=== PATIENT | male | born 1960 | race Caucasian/White ===

== ENCOUNTER 2017-09-03 18:27 | Emergency (ER) | payer BC ==
[2017-09-03] MEDS ORDERED: Sodium Chloride 0.9% 10 ML Syringe FLUSH PRN (18:37)
--- NOTE | 2017-09-03 18:40 | EDM.PDOC ---
<Dagoberto Pemberton M - Last Filed: 09/03/17 18:45> ED HPI GENERAL MEDICAL PROBLEM - General Chief Complaint: Cardiovascular Problem Stated Complaint: palpitations Time Seen by Provider: 09/03/17 18:29 Source of Information: Reports: Patient History Limitations: Reports: No Limitations - History of Present Illness INITIAL COMMENTS - FREE TEXT/NARRATIVE: Patient presents to emergency room this evening with complaints of chest palpitations that started earlier this morning. She states that he's had this on several different occasions but usually they're short-lived and not prolonged like today's episode has been. Patient does have a history of anxiety and migraine headaches for which she does admit to smoking and occasional marijuana. He does state that he had a migraine this morning and did take some sumatriptan. He denies any actual chest pain or pressure; however he states that he feels like his heart is going to beat out of his chest. He denies any history of atrial fibrillation or other arrhythmia, no history of prior [place] or stroke. He states that he used to be a smoker but quit when he was 51, denies any alcohol use. Onset: Today, Gradual Duration: Intermittent Location: Reports: Chest Severity: Moderate - Related Data Allergies Allergy/AdvReac Type Severity Reaction Status Date / Time No Known Allergies Allergy Verified 09/03/17 19:00 Home Meds: Home Meds Multivitamin with Minerals [Multiple Vitamin] 1 tab PO DAILY 02/27/15 [History] SUMAtriptan Succinate [Sumatriptan Succinate] 1 tab PO Q2HR PRN 02/27/15 [ History] LORazepam [LORazepam] 1 mg PO BID PRN 09/03/17 [History] Past Medical History Other Musculoskeletal History: RIGHT HAND FX. FX RIB Social & Family History - Tobacco Use Smoking Status *Q: Former Smoker Used Tobacco, but Quit: Yes Month Tobacco Last Used: OCTOBER Second Hand Smoke Exposure: Yes - Recreational Drug Use Recreational Drug Use: Yes Drug Use in Last 12 Months: Yes Recreational Drug Type: Reports: Marijuana/Hashish Recreational Drug Use Frequency: Socially ED ROS GENERAL - Review of Systems Review Of Systems: See Below Constitutional: Reports: No Symptoms HEENT: Reports: No Symptoms Respiratory: Reports: No Symptoms Cardiovascular: Reports: Palpitations Endocrine: Reports: No Symptoms GI/Abdominal: Reports: No Symptoms : Reports: No Symptoms Musculoskeletal: Reports: No Symptoms Skin: Reports: No Symptoms Neurological: Reports: Headache Psychiatric: Reports: No Symptoms Hematologic/Lymphatic: Reports: No Symptoms Immunologic: Reports: No Symptoms ED EXAM, GENERAL - Physical Exam Exam: See Below Exam Limited By: No Limitations General Appearance: Alert, WD/WN, Mild Distress Eye Exam: Bilateral Eye: EOMI, Normal Inspection, PERRL Ears: Normal External Exam, Normal Canal, Hearing Grossly Normal, Normal TMs Nose: Normal Inspection, Normal Mucosa, No Blood Throat/Mouth: Normal Inspection, Normal Lips, Normal Teeth, Normal Gums, Normal Oropharynx, Normal Voice, No Airway Compromise Head: Atraumatic, Normocephalic Neck: Normal Inspection, Supple, Non-Tender, Full Range of Motion Respiratory/Chest: No Respiratory Distress, Lungs Clear, Normal Breath Sounds, No Accessory Muscle Use, Chest Non-Tender Cardiovascular: Normal Peripheral Pulses, Regular Rate, Rhythm, No Edema, No Gallop, No JVD, No Murmur, No Rub Peripheral Pulses: 2+: Posterior Tibial (L), Posterior Tibial (R), Dorsalis Pedis (L), Dorsalis Pedis (R) GI/Abdominal: Normal Bowel Sounds, Soft, Non-Tender, No Organomegaly, No Distention, No Abnormal Bruit, No Mass Back Exam: Normal Inspection, Full Range of Motion, NT Extremities: Normal Inspection, Normal Range of Motion, Non-Tender, Normal Capillary Refill, No Pedal Edema Neurological: Alert, Oriented, CN II-XII Intact, Normal Cognition, Normal Gait, Normal Reflexes, No Motor/Sensory Deficits Psychiatric: Normal Affect, Normal Mood Skin Exam: Warm, Dry, Intact, Normal Color, No Rash Lymphatic: No Adenopathy EKG INTERPRETATION EKG Date: 09/03/17 Time: 18:39 Rhythm: Other (sinus bradycardia) [place]: Normal P-Wave: Present QRS: Normal ST-T: Normal QT: Normal Comparison: NA - No Prior EKG EKG Interpretation Comments: 1. sinus bradycardia Course - Vital Signs Last Recorded V/S: Last Vital Signs Temp 35.8 C 09/03/17 18:35 Pulse 78 09/03/17 18:35 Resp 16 09/03/17 18:35 BP 143/69 H 09/03/17 18:35 Pulse Ox 97 09/03/17 18:35 - Orders/Labs/Meds Orders: Active Orders 24 hr Category Date Time Status EKG Documentation Completion [RC] ROUTINE Care 09/03/17 18:37 Chest 2V [CR] Stat Exams 09/03/17 18:37 Taken Sodium Chloride 0.9% [Saline Flush] Med 09/03/17 18:37 Active 10 ml FLUSH ASDIRECTED PRN Saline Lock Insert [OM.PC] Routine Oth 09/03/17 18:37 Ordered Medication Orders Sodium Chloride (Saline Flush) 10 ml FLUSH ASDIRECTED PRN PRN Reason: Keep Vein Open Labs: Laboratory Tests 09/03/17 09/03/17 Range/Units 18:45 18:45 WBC 5.7 (4.0-10.0) x10^3/uL RBC 4.77 (4.5-6.0) x10^6/uL Hgb 14.8 (14.0-18.0) g/dL Hct 40.9 (40.0-52.0) % MCV 85.7 (78.0-93.0) fL MCH 31.0 (26.0-32.0) pg MCHC 36.2 H (32.0-36.0) g/dL RDW Coeff of Marck 12.4 (10.0-15.0) % Plt Count 170 (130-400) x10^3/uL Neut % (Auto) 56.1 (50.0-80.0) % Lymph % (Auto) 34.2 (25.0-50.0) % [place] % (Auto) 7.4 (2.0-11.0) % Eos % (Auto) 1.9 (0.0-4.0) % Baso % (Auto) 0.4 (0.2-1.2) % Sodium 140 (136-145) mmol/L Potassium 3.8 (3.5-5.1) mmol/L Chloride 106 (98-107) mmol/L Carbon Dioxide 23 (21-32) mmol/L BUN 21 H (7-18) mg/dL Creatinine 1.0 (0.70-1.30) mg/dL Est Cr Clr Drug Dosing 82.48 mL/min Estimated GFR (MDRD) > 60 Glucose 96 (74-106) mg/dL Calcium 8.7 (8.5-10.1) mg/dL Corrected Calcium 8.70 (8.5-10.1) mg/dL Magnesium 1.9 (1.8-2.4) mg/dL Total Bilirubin 1.3 H (0.2-1.0) mg/dL AST 18 (15-37) U/L ALT 35 (16-63) U/L Alkaline Phosphatase 60 (46-116) U/L Troponin I < 0.017 (<=0.056) ng/mL C-Reactive Protein < 0.2 (<=0.9) mg/dL NT-Pro-B Natriuret Pep 28 (<=125) pg/mL Total Protein 6.6 (6.4-8.2) g/dL Albumin 4.0 (3.4-5.0) g/dL Globulin 2.6 Albumin/Globulin Ratio 1.54 Meds: Medications Generic Name Dose Route Start Last Admin Trade Name Freq PRN Reason Stop Dose Admin Sodium Chloride 10 ml 09/03/17 18:37 Saline Flush FLUSH ASDIRECTED PRN Keep Vein Open Discontinued Medications Generic Name Dose Route Start Last Admin Trade Name Freq PRN Reason Stop Dose Admin Sodium Chloride 1,000 mls @ 999 mls/hr 09/03/17 18:37 09/03/17 18:54 Normal Saline IV 09/03/17 19:37 999 mls/hr ONETIME ONE Administration Departure - Departure Disposition: Home, Self-Care 01 Clinical Impression: Palpitations Instructions: Palpitations Referrals: Marito Linda MD [Primary Care Provider] - Forms: ED Department Discharge Additional Instructions: Home to rest. Follow-up with Dr. Linda in 7-10 days for recheck. If you are continuing to have problems, return to ER. You may need a holter study if you are continuing to have problems with palpitations. <Grey Espinoza - Last Filed: 09/03/17 20:12> Course - Re-Assessments/Exams Free Text/Narrative Re-Assessment/Exam: 09/03/17 20:04 Labs, x-rays, and EKG were all found to be within normal limits. Pt. was symptom -free at shift change and continued to be symptoms-free during his time here in the ER. Departure - Departure Time of Disposition: 20:11 Condition: Good
[2017-09-03] MEDS: Sodium Chloride 0.9% 1,000 ML IV ONE (18:54)
[2017-09-03 19:05] VITALS: BP 143/69
[2017-09-03 19:25] LABS: CHLORIDE,CL 106 mmol/L (98-107); SODIUM,NA 140 mmol/L (136-145)
== END 2017-09-03 20:10 | disposition home or self-care (01) ==
LOC: VM.ED 18:27
DX: R00.2 Palpitations (principal); F41.9 Anxiety disorder, unspecified; G43.909 Migraine, unspecified, not intractable, without status migrainosus; Z79.899 Other long term (current) drug therapy; Z87.891 Personal history of nicotine dependence
CPT/HCPCS: 36415; 71046; 80053; 83735; 83880; 84484; 85025; 86140; 93005; 96365; 99285; J7030